=== PATIENT | female | born 1990 | race Caucasian/White ===

== ENCOUNTER 2017-11-06 17:52 | Emergency (ER) | payer MEDICAID ==
[2017-11-06 20:23] LABS: ADD UMIC NO; UR ASCORBIC ACID NEGATIVE (NEGATIVE); UR BILIRUBIN (Dip) NEGATIVE (NEGATIVE); UR BLOOD (Dip) NEGATIVE (NEGATIVE); UR CLARITY CLEAR (CLEAR); UR COLOR STRAW (YELLOW); UR GLUCOSE (Dip) NEGATIVE (NEGATIVE); UR KETONES (Dip) NEGATIVE (NEGATIVE); UR LEUKOCYTE ESTERASE (Dip) NEGATIVE Leu/ul (NEGATIVE); UR NITRITE (Dip) NEGATIVE (NEGATIVE); UR SPECIFIC GRAVITY (Dip) 1.006 (1.003-1.030); UR TOTAL PROTEIN (Dip) NEGATIVE (NEGATIVE); UR UROBILINOGEN (Dip) NEGATIVE (NEGATIVE)
[2017-11-06] MEDS: ACETAMINOPHEN 325 MG TAB PO (20:25)
[2017-11-06] MEDS: SOD CHLORIDE 0.9% 1,000 ML IV (20:25)
[2017-11-06 20:40] LABS: ADD MAN DIFF? NO
[2017-11-06 20:42] LABS: WHITE BLOOD COUNT 10.4 10^3/ul (4.8-10.8)
[2017-11-06 20:42] LABS: BASOPHILS % 0.4 % (0.0-2.0); EOSINOPHILS # 0.1 10^3/ul (0.0-0.5); HEMATOCRIT 36.5 % (37.0-47.0); HEMOGLOBIN 12.3 g/dl (12.0-16.0); LYMPHOCYTES # 2.6 10^3/ul (0.8-2.9); LYMPHOCYTES % 24.8 % (15.0-51.0); MEAN CORPUSCULAR HEMOGLOBIN 29.4 pg (29.0-33.0); MEAN CORPUSCULAR HGB CONC 33.7 g/dl (32.0-37.0); MEAN CORPUSCULAR VOLUME 87.1 fl (82.0-101.0); MEAN PLATELET VOLUME 9.2 fl (7.4-10.4); MONOCYTE # 0.8 10^3/ul (0.3-0.9); MONOCYTES % 8.1 % (0.0-11.0); NEUTROPHIL # 6.8 10^3/ul (1.6-7.5); NEUTROPHILS % 64.9 % (39.0-77.0); PLATELET COUNT 242 10^3/UL (140-415); RED BLOOD COUNT 4.19 10^6/ul (4.20-5.40); RED CELL DISTRIBUTION WIDTH 14.8 % (11.5-14.5)
[2017-11-06 21:02] LABS: INR 0.93; PROTIME 12.5 Sec (11.9-14.9)
[2017-11-06 21:03] LABS: PARTIAL THROMBOPLASTIN TIME 27.5 Sec (25.0-35.0)
[2017-11-06 21:20] LABS: ALANINE AMINOTRANSFERASE 29 IU/L (13-69); ALBUMIN 4.3 g/dl (3.3-4.9); ALBUMIN/GLOBULIN RATIO 1.07; ALKALINE PHOSPHATASE 69 IU/L (42-121); ANION GAP 17 (8-16); ASPARTATE AMINO TRANSFERASE 31 IU/L (15-46); BILIRUBIN,INDIRECT 0.2 mg/dl (0-1.1); BILIRUBIN,TOTAL 0.2 mg/dl (0.2-1.3); BLOOD UREA NITROGEN 9 mg/dl (7-20); CALCIUM 9.1 mg/dl (8.4-10.2); CARBON DIOXIDE 23 mmol/L (21-31); CHLORIDE 105 mmol/L (97-110); CREATININE 0.66 mg/dl (0.44-1.00); GLUCOSE 94 mg/dl (70-220); POTASSIUM 3.6 mmol/L (3.5-5.1); SODIUM 141 mmol/L (135-144); TOTAL PROTEIN 8.3 g/dl (6.1-8.1)
== END 2017-11-06 22:44 | disposition home or self-care (01) ==
LOC: FTE 17:52
DX: O26.892 Other specified pregnancy related conditions, second trimester (principal); R10.2 Pelvic and perineal pain; Z3A.18 18 weeks gestation of pregnancy
CPT/HCPCS: 36415; 76805; 80053; 81003; 84702; 85025; 85610; 85730; 86900; 86901; 99285-25

== ENCOUNTER 2018-03-02 00:19 | Inpatient (IN) | payer MEDICAID ==
[2018-03-02 02:28] LABS: ADD UMIC YES; UR ASCORBIC ACID NEGATIVE (NEGATIVE); UR BACTERIA MODERATE /HPF (NONE SEEN); UR BILIRUBIN (Dip) NEGATIVE (NEGATIVE); UR BLOOD (Dip) 3+ mg/dL (NEGATIVE); UR CLARITY CLEAR (CLEAR); UR COLOR YELLOW (YELLOW); UR GLUCOSE (Dip) NEGATIVE (NEGATIVE); UR KETONES (Dip) NEGATIVE (NEGATIVE); UR LEUKOCYTE ESTERASE (Dip) NEGATIVE Leu/ul (NEGATIVE); UR NITRITE (Dip) NEGATIVE (NEGATIVE); UR RBC 24 /HPF (0-5); UR SPECIFIC GRAVITY (Dip) 1.004 (1.003-1.030); UR SQUAMOUS EPITHELIAL CELL FEW /HPF (FEW); UR TOTAL PROTEIN (Dip) NEGATIVE (NEGATIVE); UR UROBILINOGEN (Dip) NEGATIVE (NEGATIVE); UR WBC 2 /HPF (0-5)
[2018-03-02 03:03] LABS: ADD MAN DIFF? NO
[2018-03-02] MEDS: MAGNESIUM SULFATE 4 GM/100 ML 100 ML IV (03:03)
[2018-03-02] MEDS: BETAMET NA PHOS/AC(6 MG/ML) 5ML INJ IM (03:05)
[2018-03-02 03:07] LABS: BASOPHILS % 0.3 % (0.0-2.0); EOSINOPHILS # 0.1 10^3/ul (0.0-0.5); EOSINOPHILS % 0.6 % (0.0-7.0); HEMATOCRIT 34.1 % (37.0-47.0); HEMOGLOBIN 11.5 g/dl (12.0-16.0); IMMATURE GRANS #M 0.15 10^3/ul; IMMATURE GRANS % (M) 1.9 %; LYMPHOCYTES # 1.7 10^3/ul (0.8-2.9); LYMPHOCYTES % 22.1 % (15.0-51.0); MEAN CORPUSCULAR HEMOGLOBIN 31.1 pg (29.0-33.0); MEAN CORPUSCULAR HGB CONC 33.7 g/dl (32.0-37.0); MEAN CORPUSCULAR VOLUME 92.2 fl (82.0-101.0); MEAN PLATELET VOLUME 9.9 fl (7.4-10.4); MONOCYTE # 0.8 10^3/ul (0.3-0.9); MONOCYTES % 10.3 % (0.0-11.0); NEUTROPHILS % 64.8 % (39.0-77.0); PLATELET COUNT 208 10^3/UL (140-415); RED CELL DISTRIBUTION WIDTH 13.8 % (11.5-14.5)
[2018-03-02 03:07] LABS: WHITE BLOOD COUNT 7.8 10^3/ul (4.8-10.8)
[2018-03-02] MEDS: LACTATED RINGER'S 1,000 ML IV ×4 (03:07→18:30)
[2018-03-02] MEDS: AMPICILLIN 2 GM/NS (PMX) 100 ML IV (03:12)
[2018-03-02] MEDS: MAGNESIUM SULFATE 20 GM/500 ML 500 ML IV ×3 (03:29→22:43)
[2018-03-02] MEDS: AMPICILLIN 1 GM/NS (PMX) 50 ML IV ×5 (07:00→22:19)
[2018-03-02] MEDS: PRENATAL VITAMIN PO (09:39)
[2018-03-02 16:32] LABS: MAGNESIUM 5.9 mg/dl (1.7-2.5)
[2018-03-02 22:17] LABS: MAGNESIUM 6.1 mg/dl (1.7-2.5)
[2018-03-03 01:45] LABS: MAGNESIUM 6.1 mg/dl (1.7-2.5)
[2018-03-03] MEDS: LACTATED RINGER'S 1,000 ML IV ×3 (02:26→22:19)
[2018-03-03] MEDS: AMPICILLIN 1 GM/NS (PMX) 50 ML IV ×6 (02:34→22:19)
[2018-03-03] MEDS: BETAMET NA PHOS/AC(6 MG/ML) 5ML INJ IM (03:10)
[2018-03-03] MEDS: MAGNESIUM SULFATE 20 GM/500 ML 500 ML IV ×2 (08:09→18:24)
[2018-03-03] MEDS: PRENATAL VITAMIN PO (08:30)
[2018-03-03 08:51] LABS: MAGNESIUM 6.4 mg/dl (1.7-2.5)
[2018-03-03 18:38] LABS: MAGNESIUM 5.8 mg/dl (1.7-2.5)
[2018-03-04] MEDS: AMPICILLIN 1 GM/NS (PMX) 50 ML IV ×4 (02:24→16:19)
[2018-03-04 03:02] LABS: MAGNESIUM 5.8 mg/dl (1.7-2.5)
[2018-03-04] MEDS: MAGNESIUM SULFATE 20 GM/500 ML 500 ML IV (04:41)
[2018-03-04] MEDS: NIFEdipine 10 MG CAP PO ×3 (06:38→17:51)
[2018-03-04 07:02] LABS: INR 0.97
[2018-03-04 07:13] LABS: MAGNESIUM 5.9 mg/dl (1.7-2.5)
[2018-03-04 07:33] LABS: HEPATITIS B SURFACE ANTIGEN NEGATIVE (NEGATIVE)
[2018-03-04 07:43] LABS: HIV 1&2 ANTIBODY NEGATIVE (NEGATIVE)
[2018-03-04] MEDS: PRENATAL VITAMIN PO (07:48)
[2018-03-04] MEDS: LACTATED RINGER'S 1,000 ML IV ×3 (09:20→16:19)
[2018-03-04 21:53] LABS: RAPID PLASMA REAGIN NONREACTIVE (NR)
== END 2018-03-04 18:30 | disposition home or self-care (01) | DRG 782 ==
LOC: OBT 00:19 → L-D 00:20 → OBT 02:37 → L-D 02:38
DX: O46.93 Antepartum hemorrhage, unspecified, third trimester (principal); O47.03 False labor before 37 completed weeks of gestation, third trimester; Z3A.34 34 weeks gestation of pregnancy
CPT/HCPCS: 76817; 76818; 81001; 83735; 85025; 85610; 85730; 86592; 86703; 86850; 86900; 86901; 87340

== ENCOUNTER 2018-03-11 18:14 | Outpatient (CLI) | payer MEDICAID | END 2018-03-11 21:35 | disposition home or self-care (01) | LOC: OBT 18:14 → L-D 18:15 → OBT 21:35 | DX: O62.9 Abnormality of forces of labor, unspecified (principal); O36.8330 Maternal care for abnormalities of the fetal heart rate or rhythm, third trimester, not applicable or unspecified; Z3A.34 34 weeks gestation of pregnancy | CPT/HCPCS: 76818 ==

== ENCOUNTER 2018-03-18 12:00 | Outpatient (CLI) | payer MEDICAID ==
[2018-03-18 13:16] LABS: ADD UMIC NO; UR ASCORBIC ACID NEGATIVE (NEGATIVE); UR BILIRUBIN (Dip) NEGATIVE (NEGATIVE); UR BLOOD (Dip) NEGATIVE (NEGATIVE); UR CLARITY CLEAR (CLEAR); UR COLOR STRAW (YELLOW); UR GLUCOSE (Dip) NEGATIVE (NEGATIVE); UR KETONES (Dip) NEGATIVE (NEGATIVE); UR LEUKOCYTE ESTERASE (Dip) NEGATIVE Leu/ul (NEGATIVE); UR NITRITE (Dip) NEGATIVE (NEGATIVE); UR SPECIFIC GRAVITY (Dip) 1.002 (1.003-1.030); UR TOTAL PROTEIN (Dip) NEGATIVE (NEGATIVE); UR UROBILINOGEN (Dip) NEGATIVE (NEGATIVE)
[2018-03-18] MEDS: TERBUTALINE 1 MG/ML INJ SC ×3 (15:46→23:36)
[2018-03-18] MEDS: LACTATED RINGER'S 1,000 ML IV ×2 (15:49→23:35)
[2018-03-18] MEDS: HYDROCODONE/APAP (5/325) TAB PO (23:36)
== END 2018-03-19 02:00 | disposition home or self-care (01) ==
LOC: OBT 12:00 → L-D 12:02
DX: O62.9 Abnormality of forces of labor, unspecified (principal); Z3A.36 36 weeks gestation of pregnancy
CPT/HCPCS: 36415; 76815; 76817; 76818; 81003; 96360; 96361; 96372

== ENCOUNTER 2018-03-23 14:42 | Outpatient (CLI) | payer MEDICAID | END 2018-03-23 16:15 | disposition home or self-care (01) | LOC: OBT 14:42 → L-D 14:43 → OBT 16:15 | DX: O36.8130 Decreased fetal movements, third trimester, not applicable or unspecified (principal); Z3A.37 37 weeks gestation of pregnancy | CPT/HCPCS: 76818 ==

== ENCOUNTER 2018-04-09 08:43 | Inpatient (IN) | payer MEDICAID ==
[2018-04-09] MEDS ORDERED: LACTATED RINGER'S 1,000 ML IV (08:53)
[2018-04-09] MEDS ORDERED: MISOPROSTOL 200 MCG TAB PR ×3 (09:00→23:00)
[2018-04-09] MEDS ORDERED: CARBOPROST 250 MCG INJ IM ×3 (09:00→23:00)
[2018-04-09] MEDS ORDERED: METHYLERGONOVINE 0.2 MG INJ IM ×3 (09:00→23:00)
[2018-04-09] MEDS ORDERED: CEFAZOLIN 2 GM/50 ML (PMX) 50 ML IV ×2 (09:00→10:00)
[2018-04-09] MEDS ORDERED: OXYTOCIN 30 UNITS/LR 500 ML IV ×6 (09:00→23:00)
[2018-04-09 09:39] LABS: ADD MAN DIFF? NO
[2018-04-09 09:42] LABS: BASOPHIL # 0.1 10^3/ul (0.0-0.1); BASOPHILS % 0.6 % (0.0-2.0); EOSINOPHILS % 0.5 % (0.0-7.0); LYMPHOCYTES # 1.6 10^3/ul (0.8-2.9); LYMPHOCYTES % 20.9 % (15.0-51.0); MEAN CORPUSCULAR HEMOGLOBIN 31.1 pg (29.0-33.0); MEAN CORPUSCULAR HGB CONC 34.3 g/dl (32.0-37.0); MEAN CORPUSCULAR VOLUME 90.7 fl (82.0-101.0); MEAN PLATELET VOLUME 9.6 fl (7.4-10.4); MONOCYTE # 0.8 10^3/ul (0.3-0.9); MONOCYTES % 10.3 % (0.0-11.0); NEUTROPHIL # 5.1 10^3/ul (1.6-7.5); PLATELET COUNT 175 10^3/UL (140-415); RED BLOOD COUNT 3.86 10^6/ul (4.20-5.40); RED CELL DISTRIBUTION WIDTH 13.7 % (11.5-14.5)
[2018-04-09 09:42] LABS: WHITE BLOOD COUNT 7.8 10^3/ul (4.8-10.8)
[2018-04-09] MEDS: LACTATED RINGER'S 1,000 ML IV ×4 (09:54→22:34)
[2018-04-09 10:01] LABS: INR 0.84; PROTIME 11.6 Sec (11.9-14.9); PT RATIO 0.9
[2018-04-09 10:02] LABS: PARTIAL THROMBOPLASTIN TIME 26.8 Sec (25.0-35.0)
[2018-04-09] MEDS: CITRIC ACID/SODIUM CITRATE 15 ML CUP PO (10:30)
[2018-04-09] MEDS: FAMOTIDINE 20 MG INJ IV (15:02)
[2018-04-09] MEDS: METOCLOPRAMIDE 10 MG INJ IV (15:02)
[2018-04-09] MEDS ORDERED: CITRIC ACID/NA CITRATE 30 ML CUP (15:16)
[2018-04-09] MEDS: CITRIC ACID/NA CITRATE 30 ML CUP PO (15:26)
[2018-04-09 15:47] LABS: RAPID PLASMA REAGIN NONREACTIVE (NR)
[2018-04-09] MEDS ORDERED: morphine SULFATE/PF (10 MG/10 ML) INJ (17:35)
[2018-04-09] MEDS ORDERED: BUPIVACAINE 0.75%/DEXT (SPINAL) 2 ML INJ (17:35)
[2018-04-09] MEDS ORDERED: PHENYLephrine (100 MCG/ML) 5ML SYG (17:49)
[2018-04-09] MEDS ORDERED: ONDANSETRON 4 MG INJ (17:49)
[2018-04-09 18:01] LABS: HEPATITIS B SURFACE ANTIGEN NEGATIVE (NEGATIVE)
[2018-04-09] MEDS ORDERED: MIDAZOLAM 1 MG/ML 2 ML INJ (18:03)
[2018-04-09] MEDS ORDERED: EPHEDrine SULFATE 50 MG/5 ML SYG (18:19)
[2018-04-09] MEDS: OXYTOCIN 30 UNITS/LR 500 ML IV ×2 (18:43→23:09)
[2018-04-09] MEDS ORDERED: HYDROmorphONE 1 MG/5 ML IV SYRINGE IV ×3 (19:00)
[2018-04-09] MEDS ORDERED: KETOROLAC 30 MG INJ IV (19:00)
[2018-04-09] MEDS ORDERED: ZOLPIDEM 5 MG TAB PO (19:00)
[2018-04-09] MEDS ORDERED: MEPERIDINE 25 MG INJ IV (19:00)
[2018-04-09] MEDS ORDERED: ONDANSETRON 4 MG INJ IV ×2 (19:00)
[2018-04-09] MEDS ORDERED: HYDROmorphONE 0.5 MG/0.5 ML SYG IV ×2 (19:00)
[2018-04-09] MEDS ORDERED: NALOXONE (0.4 MG/ML) INJ IV (19:00)
[2018-04-09] MEDS ORDERED: DIPHENHYDRAMINE 50 MG INJ IV ×2 (19:00)
[2018-04-09] MEDS ORDERED: PROCHLORPERAZINE 10 MG INJ IV (19:00)
[2018-04-09] MEDS ORDERED: FENTAnyl 50 MCG/ML VIAL IV ×3 (19:00)
[2018-04-09] MEDS: KETOROLAC 30 MG INJ IV (21:16)
[2018-04-09] MEDS ORDERED: NA PHOSPHATE/BIPHOS 133 ML ENEMA PR (23:00)
[2018-04-09] MEDS ORDERED: NACL 0.9% 3 ML SYG IV (23:00)
[2018-04-09] MEDS: LANOLIN 7 GM TUBE TOP (23:11)
[2018-04-10 08:29] LABS: ADD MAN DIFF? NO
[2018-04-10 08:33] LABS: BASOPHILS % 0.3 % (0.0-2.0); EOSINOPHILS % 0.2 % (0.0-7.0); HEMATOCRIT 28.8 % (37.0-47.0); HEMOGLOBIN 9.6 g/dl (12.0-16.0); LYMPHOCYTES # 1.4 10^3/ul (0.8-2.9); LYMPHOCYTES % 13.2 % (15.0-51.0); MEAN CORPUSCULAR HEMOGLOBIN 30.7 pg (29.0-33.0); MEAN CORPUSCULAR HGB CONC 33.3 g/dl (32.0-37.0); MEAN PLATELET VOLUME 9.8 fl (7.4-10.4); MONOCYTES % 9.7 % (0.0-11.0); NEUTROPHIL # 7.7 10^3/ul (1.6-7.5); NEUTROPHILS % 75.8 % (39.0-77.0); PLATELET COUNT 147 10^3/UL (140-415); RED BLOOD COUNT 3.13 10^6/ul (4.20-5.40); RED CELL DISTRIBUTION WIDTH 14.2 % (11.5-14.5)
[2018-04-10 08:33] LABS: WHITE BLOOD COUNT 10.2 10^3/ul (4.8-10.8)
[2018-04-10] MEDS: LACTATED RINGER'S 1,000 ML IV ×2 (09:27→14:34)
[2018-04-10] MEDS: KETOROLAC 30 MG INJ IV ×2 (11:41→17:47)
[2018-04-10] MEDS: IBUPROFEN 800 MG TAB PO ×2 (14:00→21:20)
[2018-04-11] MEDS: HYDROCODONE/APAP (5/325) TAB PO ×2 (01:35→22:16)
[2018-04-11] MEDS: IBUPROFEN 800 MG TAB PO ×3 (05:43→21:34)
[2018-04-12] MEDS: IBUPROFEN 800 MG TAB PO ×2 (05:55→13:41)
[2018-04-12] MEDS: MEASLES,MUMPS,RUBELLA VACCINE INJ SC* (09:00)
[2018-04-12] MEDS: HYDROCODONE/APAP (5/325) TAB PO (10:58)
[2018-04-12] MEDS: DIPHTH/TET/ACEL PERTUSS (ADULT) 0.5 ML VIAL IM* (12:26)
== END 2018-04-12 14:30 | disposition home or self-care (01) | DRG 766 ==
LOC: L-D 08:43 → PP1 22:16
PROVIDERS: Obstetrics & Gynecology
PROC: 10D00Z1 Extraction of Products of Conception, Low, Open Approach (ICD-10-PCS; principal; 2018-04-09 15:30)
DX: O34.219 Maternal care for unspecified type scar from previous cesarean delivery (principal); O77.0 Labor and delivery complicated by meconium in amniotic fluid; Z3A.39 39 weeks gestation of pregnancy; Z37.0 Single live birth; Z23 Encounter for immunization
CPT/HCPCS: 85025; 85610; 85730; 86592; 86780; 86850; 86900; 86901; 87340; 90715; 99464